=== PATIENT | male | born 2000 | race Caucasian/White ===

== ENCOUNTER 2019-05-28 23:55 | Emergency (ER) | payer SELFPAY ==
[~2019-05-28] VITALS: Ht 172.7 cm; Wt 59.0 kg
[2019-05-28 23:55] VITALS: BP 122/74
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
--- NOTE | 2019-05-28 23:55 | NUR ---
PT BIB [facility], PREBOOK. TAKEN TO CHAIR C
--- NOTE | 2019-05-29 00:23 | NUR ---
Dr. Painting examining patient.
[2019-05-29 00:31] VITALS: BP 122/74
--- NOTE | 2019-05-29 00:31 | NUR ---
PATIENT EXAMINED BY DR. AVILA. PATIENT MEDICALLY CLEARED AND RELEASED IN CUSTODY IN STABLE CONDITION. ORIGINAL PRE-BOOK FORM GIVEN TO [facility] OFFICER.
== END 2019-05-29 00:31 | disposition home or self-care (01) ==
LOC: MED 23:55
DX: Z02.89 Encounter for other administrative examinations (principal); V89.2XXA Person injured in unspecified motor-vehicle accident, traffic, initial encounter; Y93.89 Activity, other specified; Y92.410 Unspecified street and highway as the place of occurrence of the external cause; Y99.8 Other external cause status
CPT/HCPCS: 99283